=== PATIENT | male | born 1980 | race Caucasian/White ===

== ENCOUNTER 2020-10-08 09:40 | Outpatient (REF) | payer BC, SELFPAY ==
[2020-10-08 11:49] LABS: Alanine Aminotransferase 29 U/L (0-40); Albumin Level 4.3 g/dL (3.5-5.0); Alkaline Phosphatase 57 U/L (39-117); Anion Gap 10 (12-20); Aspartate Amino Transferase 16 U/L (5-37); Bilirubin Total 0.7 mg/dL (0.0-1.0); Blood Urea Nitrogen 12 mg/dL (9-16); Calcium 8.9 mg/dL (8.4-10.2); Carbon Dioxide 28 mmol/L (22-29); Chloride 106 mmol/L (96-108); Cholesterol 149 mg/dL; Estimated Glomerular Filt Rate > 60; Glucose Fasting 104 mg/dL (60-99); HDL Cholesterol 39 mg/dL; LDL Cholesterol Calculated 94 mg/dl; Potassium 4.3 mmol/L (3.3-5.1); Sodium 140 mmol/L (135-145); Total Protein 7.2 g/dL (6.5-8.0); Triglycerides 82 mg/dL
[2020-10-08 12:10] LABS: TSH reflex Free T4 1.24 uIU/mL (0.32-4.0)
== END 2020-10-08 09:41 | disposition home or self-care (01) ==
LOC: HO.HMGCLDS 09:40
PROVIDERS: PCP Nurse Practitioner Family; Visit Provider Nurse Practitioner Family
DX: Z00.00 Encounter for general adult medical examination without abnormal findings (principal)
CPT/HCPCS: 36415; 80053; 80061; 84443

== ENCOUNTER 2021-10-28 13:34 | Outpatient (REF) | payer BC, SELFPAY ==
[2021-10-28 16:25] LABS: MANUAL DIFF FLAG NO
[2021-10-28 16:29] LABS: Basophils Percent Auto 0.2 % (0-2); Eosinophils Absolute Auto 0.1 X10*3/uL (0.0-0.4); Eosinophils Percent Auto 2.2 % (0-4); Hemoglobin 15.1 g/dl (14.0-18.0); Imm Gran Abs Auto 0.01 X10*3/uL (0.00-0.03); Imm Gran Pct Auto 0.2 % (0.0-0.4); Lymphocytes Absolute Auto 1.8 X10*3/uL (1.2-4.9); Lymphocytes Percent Auto 32.5 % (20-40); Mean Corpuscular HGB Conc 34.3 g/dl (31.0-36.0); Mean Corpuscular Hemoglobin 28.8 pg (27.0-33.0); Monocytes Absolute Auto 0.5 X10*3/uL (0.1-1.2); Monocytes Percent Auto 8.7 % (2-11); Neutrophils Absolute Auto 3.1 x10*3/uL (2.0-8.3); Neutrophils Percent Auto 56.2 % (45-73); Platelet Count 261 X10*3/uL (160-400); Red Blood Count 5.24 X10*6/uL (4.60-5.80); Red Cell Distribution Width 12.8 % (11.0-16.0); White Blood Count 5.5 X10*3/uL (4.8-10.8)
[2021-10-28 16:34] LABS: Appearance Urine CLOUDY; Color Urine YELLOW; Glucose Urine UA NEG (NEG); Leukocyte Esterase Urine NEG (NEG); Nitrite Urine NEG (NEG); Specific Gravity - Urine 1.025 (1.005-1.025); Urine Blood NEG (NEG); Urine Ketones 5 MG/DL (NEG); Urine Protein NEG (NEG-TRACE)
[2021-10-28 16:42] LABS: Alanine Aminotransferase 37 U/L (0-40); Albumin Level 4.5 g/dL (3.5-5.0); Alkaline Phosphatase 62 U/L (39-117); Anion Gap 14 (12-20); Aspartate Amino Transferase 21 U/L (5-37); Blood Urea Nitrogen 11 mg/dL (9-16); Calcium 9.6 mg/dL (8.4-10.2); Carbon Dioxide 27 mmol/L (22-29); Chloride 101 mmol/L (96-108); Cholesterol 173 mg/dL; Estimated Glomerular Filt Rate > 60; Glucose Fasting 92 mg/dL (60-99); HDL Cholesterol 41 mg/dL; LDL Cholesterol Calculated 115 mg/dl; Potassium 4.1 mmol/L (3.3-5.1); Sodium 138 mmol/L (135-145); Total Protein 7.8 g/dL (6.5-8.0); Triglycerides 87 mg/dL
[2021-10-28 17:02] LABS: TSH reflex Free T4 1.19 uIU/mL (0.32-4.0)
== END 2021-10-28 13:35 | disposition home or self-care (01) ==
LOC: HO.HMGCLDS 13:34
PROVIDERS: Visit Provider Nurse Practitioner Family
DX: Z00.00 Encounter for general adult medical examination without abnormal findings (principal)
CPT/HCPCS: 36415; 80053; 80061; 81003; 84443; 85025

== ENCOUNTER 2022-10-31 14:40 | Outpatient (REF) | payer BC, SELFPAY ==
[2022-10-31 16:45] LABS: MANUAL DIFF FLAG NO
[2022-10-31 16:48] LABS: Eosinophils Absolute Auto 0.1 X10*3/uL (0.0-0.4); Eosinophils Percent Auto 1.3 % (0-4); Hematocrit 46.3 % (42.0-52.0); Hemoglobin 15.6 g/dl (14.0-18.0); Imm Gran Abs Auto 0.01 X10*3/uL (0.00-0.03); Imm Gran Pct Auto 0.1 % (0.0-0.4); Lymphocytes Absolute Auto 2.1 X10*3/uL (1.2-4.9); Mean Corpuscular HGB Conc 33.7 g/dl (31.0-36.0); Mean Corpuscular Hemoglobin 28.2 pg (27.0-33.0); Mean Corpuscular Volume 83.6 fL (80.0-98.0); Mean Platelet Volume 9.8 fL (9.4-12.4); Monocytes Absolute Auto 0.5 X10*3/uL (0.1-1.2); Monocytes Percent Auto 7.8 % (2-11); Neutrophils Absolute Auto 4.1 x10*3/uL (2.0-8.3); Neutrophils Percent Auto 59.8 % (45-73); Platelet Count 280 X10*3/uL (160-400); Red Blood Count 5.54 X10*6/uL (4.60-5.80); Red Cell Distribution Width 12.6 % (11.0-16.0); White Blood Count 6.8 X10*3/uL (4.8-10.8)
[2022-10-31 17:21] LABS: Alanine Aminotransferase 41 U/L (0-40); Albumin Level 4.7 g/dL (3.5-5.0); Alkaline Phosphatase 65 U/L (39-117); Anion Gap 13 (12-20); Aspartate Amino Transferase 20 U/L (5-37); Blood Urea Nitrogen 9 mg/dL (9-16); Carbon Dioxide 27 mmol/L (22-29); Chloride 105 mmol/L (96-108); Cholesterol 166 mg/dL; Estimated Glomerular Filt Rate > 60; Glucose Fasting 98 mg/dL (60-99); HDL Cholesterol 40 mg/dL; LDL Cholesterol Calculated 103 mg/dl; Potassium 4.6 mmol/L (3.3-5.1); Sodium 140 mmol/L (135-145); Total Protein 7.8 g/dL (6.5-8.0); Triglycerides 117 mg/dL
[2022-11-01 11:47] LABS: Appearance Urine Clear; Color Urine Yellow; Glucose Urine UA Negative (Negative); Leukocyte Esterase Urine Negative (Negative); Nitrite Urine Negative (Negative); PH 6.5 (5.0-9.0); Urine Blood Negative (Negative); Urine Ketones Negative (Negative); Urine Protein Negative (Neg-Trace)
== END 2022-10-31 14:41 | disposition home or self-care (01) ==
LOC: HO.HMGCLDS 14:40
PROVIDERS: PCP Nurse Practitioner Family; Visit Provider Nurse Practitioner Family
DX: Z00.00 Encounter for general adult medical examination without abnormal findings (principal); E66.9 Obesity, unspecified; R53.83 Other fatigue
CPT/HCPCS: 36415; 80053; 80061; 81003; 84443; 85025

== ENCOUNTER 2022-11-09 08:31 | Outpatient (REF) | payer BC, SELFPAY ==
[2022-11-09 11:32] LABS: Appearance Urine Clear; Color Urine Yellow; Glucose Urine UA Negative (Negative); Leukocyte Esterase Urine Negative (Negative); Nitrite Urine Negative (Negative); PH 6.5 (5.0-9.0); Urine Blood Negative (Negative); Urine Ketones Negative (Negative); Urine Protein Negative (Neg-Trace)
[2022-11-11 23:48] LABS: TS Negative Control Passed; TS Panel A 0; TS Panel B 0; TS Positive Control Passed; TSpotTB Negative (Negative)
== END 2022-11-09 08:32 | disposition home or self-care (01) ==
LOC: HO.HMGCLDS 08:31
PROVIDERS: PCP Nurse Practitioner Family; Visit Provider Nurse Practitioner Family
DX: Z00.00 Encounter for general adult medical examination without abnormal findings (principal); Z11.1 Encounter for screening for respiratory tuberculosis
CPT/HCPCS: 36415; 81003; 86481

== ENCOUNTER 2023-05-07 08:15 | Outpatient (AMB) | payer BC, SELFPAY ==
--- NOTE | 2023-05-07 08:23 | A.OFFPC_ITS ---
Vital Signs 05/07/23 08:26 Height 6 ft Weight 350 lb BMI 47.5 BP 120/90 H Blood Pressure Location Rt brachial Position Sitting Pulse 93 Pulse Source Pulse Oximeter Pulse Oximetry (%) 96 Oxygen Delivery Method Room Air Intake Visit Reasons: 6 month follow up Allergies No Known Allergies Allergy (Verified 05/07/23 08:26) Tobacco use date assessed: 10/31/22 HPI 6 month follow up HPI Details HTN: Blood pressure is managed with lisinopril 20mg. Pt reports that his blood pressure at home has been in the 120s/80s-90s. Will add hydrochlorothiazide 12.5mg (switching to combo med). Pt will continue to monitor his BP at home. Will order labs. Denies chest pain, shortness of breath, headache, dizziness, and blurred vision. PFSH Family History Father Hypertension Substance use disorder Mother Hypertension Social History Housing: House Alcohol intake: current Alcohol intake frequency: a few times a month Patient Tobacco Use Status: Never used Tobacco e-Cigarette/Vaping Use: Never Used Second Hand Smoke Exposure: No service: No Current occupational status: employed Current occupation: [employer] Current occupational exposures/hazards: No Cognitive needs: No Hearing needs: No Vision needs: Yes Questionnaire Thrive Questionnaire Date Thrive assessed: 10/03/21 THEODORE-7 AMB Questionnaire THEODORE-7 Date THEODORE - 7 assessed: 10/03/21 Source: Developed by Drs. Kilo Marroquin, Saranya Beltran, Jose De Jesus Yanes and colleagues, with an educational cricket from [employer]. Review of Systems Const Reports as per HPI Physical exam (Primary Care) Vital Signs: Last Vital Signs Pulse 93 05/07/23 08:26 BP 120/90 H 05/07/23 08:26 Pulse Ox 96 05/07/23 08:26 Oxygen Delivery Method Room Air 05/07/23 08:26 BMI result Body Mass Index 47.5 Tobacco/Smoking Status: Tobacco use Status Tobacco use date assessed 10/31/22 05/07/23 08:25 Patient Tobacco Use Status Never used Tobacco 05/07/23 08:25 e-Cigarette/Vaping Use Never Used 05/07/23 08:25 Thrive Assessment: Date of Thrive Assessment Date Thrive assessed 10/03/21 05/07/23 08:25 Const General: cooperative Nutritional Appearance: obese morbidly obese Orientation/consciousness: patient oriented x3 Resp Effort & Inspection: normal respiratory effort Auscultation: clear to auscultation bilaterally Cardio Rate: regular rate Rhythm: regular rhythm Heart sounds: S1 normal heart sound present and S2 normal heart sound present Neuro General: patient oriented x3 Extrem Right lower extremity: edema (trace) Left lower extremity: edema (trace) Psych Appearance: grossly normal Mental Status: mental status grossly normal Speech and movement: Normal speech and movement present Affect: normal affect Attitude: cooperative Thought process: Normal thought process present Thought content: Normal thought content present Insight: Good insight present (Psych) Judgement: Good judgement present (Psych) Assessment and Plan Assessment & Plan (1) HTN (hypertension): Code(s): I10 - Essential (primary) hypertension Plan: pt will call me if diastolic BP remains above 90 Plan The patient agreed to the use of a medical donation professional for this encounter. Scribed for HANSA Hernandez by Yoon Montanez medical donation professional, on 05/07/2023 at 08:40 EST. Orders: Orders Comprehensive Met. Panel Today I10 - Essential (primary) hypertension Medications: New lisinopril-hydrochlorothiazide 20-12.5 mg 1 tab PO DAILY 90 tabs 0RF Discontinued lisinopril Discontinued Reason: Duplicate 20 mg PO DAILY 90 days 90 tabs 1RF Coding Level of Care Code Est Pt Level 3 (57182) Diagnoses HTN (hypertension) I10
[2023-05-07 08:26] VITALS: BP 120/90; PULSE 93; O2SAT 96; BMI 47.5
== END 2023-05-07 12:37 | disposition home or self-care (01) ==
PROVIDERS: Visit Provider Nurse Practitioner Family
DX: I10 Essential (primary) hypertension (principal)
CPT/HCPCS: 99213

== ENCOUNTER 2023-11-07 10:47 | Outpatient (AMB) | payer BC, SELFPAY ==
--- NOTE | 2023-11-07 10:50 | A.OFFPC_ITS ---
Vital Signs 11/07/23 10:52 Height 6 ft Weight 350 lb BMI 47.5 BP 130/86 Blood Pressure Location Rt brachial Position Sitting Pulse 87 Pulse Source Pulse Oximeter Pulse Oximetry (%) 99 Oxygen Delivery Method Room Air Intake Visit Reasons: Annual PE Intake Note: Patient here for physical exam. Allergies No Known Allergies Allergy (Verified 11/07/23 12:16) Medication List - Last Reconciled 11/07/23 by HANSA Duran lisinopril-hydrochlorothiazide 20-12.5 mg 1 tab PO DAILY Tobacco use date assessed: 11/07/23 Dental Screening Dental Screen Date: 11/07/23 Did you have a dental visit in the last 12 months?: No Did you have a dental problem in the last 6 months where you did not have access to dental care?: No Was dental information given to patient?: No HPI Annual PE HPI Details Pt is here for a PE. Will order labs. Pt needs paperwork filled out for the adoption process. In my opinion, pt will make an excellent parent. Pt sees derm twice a year. PFSH Family History Father Hypertension Substance use disorder Mother Hypertension Social History Housing: House Alcohol intake: current Alcohol intake frequency: a few times a month Patient Tobacco Use Status: Never used Tobacco e-Cigarette/Vaping Use: Never Used Second Hand Smoke Exposure: No service: No Current occupational status: employed Current occupation: [employer] Current occupational exposures/hazards: No Cognitive needs: No Hearing needs: No Vision needs: Yes Questionnaire Thrive Questionnaire Date Thrive assessed: 10/03/21 AUDIT C Alcohol Use Questionnaire (AUDIT-C) 1. How often do you have a drink containing alcohol?: Monthly or less 2. How many drinks containing alcohol do you have on a typical day when you are drinking?: 1 or 2 3. How often do you have six or more drinks on one occasion?: Never Total Score: 1 Score Reviewed/Action Taken: No THEODORE-7 AMB Questionnaire THEODORE-7 Date THEODORE - 7 assessed: 10/03/21 Source: Developed by Drs. Kilo Marroquin, Saranya B.W. Jose De Jesus Beltran and colleagues, with an educational cricket from [employer]. Review of Systems Const Denies chills and Denies fever(s) Eyes Denies blurry vision ENT Denies vertigo, Denies dizziness and Denies sore throat Card Denies chest pain at rest, Denies chest pain with activity, Denies diaphoresis, Denies dyspnea and Denies dyspnea on exertion Resp Denies cough, Denies dyspnea, Denies dyspnea on exertion and Denies wheezing GI Denies abdominal pain, Denies melena, Denies hematochezia, Denies constipation, Denies diarrhea and Denies loose stools Denies hematuria Musc Denies numbness and Denies tingling Skin/Breast Denies lesions Neuro Denies vertigo, Denies dizziness, Denies numbness and Denies tingling Psych Denies anxiety, Denies depression, Denies homicidal ideation, Denies suicidal ideation and Denies other (substance abuse) Aller/Immun Denies wheezing Physical exam (Primary Care) Vital Signs: Last Vital Signs Pulse 87 11/07/23 10:52 BP 130/86 11/07/23 10:52 Pulse Ox 99 11/07/23 10:52 Oxygen Delivery Method Room Air 11/07/23 10:52 BMI result Body Mass Index 47.5 Tobacco/Smoking Status: Tobacco use Status Tobacco use date assessed 11/07/23 11/07/23 10:55 Patient Tobacco Use Status Never used Tobacco 11/07/23 10:55 e-Cigarette/Vaping Use Never Used 11/07/23 10:55 Thrive Assessment: Date of Thrive Assessment Date Thrive assessed 10/03/21 11/07/23 10:55 Const General: cooperative Nutritional Appearance: obese morbidly obese Orientation/consciousness: patient oriented x3 HENMT Head: Yes normal to inspection, Yes normocephalic and Yes atraumatic Ears: TM's normal bilaterally Eyes General: appearance normal, both eyes and all related structures Alignment and Position: alignment normal and position normal Neck Neck: Yes normal visual inspection and Yes no lymphadenopathy Thyroid: Thyroid normal Resp Effort & Inspection: normal respiratory effort Auscultation: clear to auscultation bilaterally Cardio Rate: regular rate Rhythm: regular rhythm Heart sounds: S1 normal heart sound present, S2 normal heart sound present and no murmurs GI Palpation (GI): Soft to palpation and nontender Auscultation: normal bowel sounds Male General Exam: Yes normal external exam Penis: normal penis Scrotum: scrotum normal, testes descended bilaterally and no inguinal hernias Testes: no testicular mass Skin Other: several moles to back (range in size and shape, though mostly round and dark without any irregular borders) Rashes: no rashes Neuro General: patient oriented x3, moves all extremities, no focal motor deficits and deep tendon reflexes 2+ bilaterally Romberg Test: Negative Psych Appearance: grossly normal Mental Status: mental status grossly normal Speech and movement: Normal speech and movement present Affect: normal affect Attitude: cooperative Thought process: Normal thought process present Thought content: Normal thought content present Insight: Good insight present (Psych) Judgement: Good judgement present (Psych) Assessment and Plan Assessment & Plan (1) Physical exam: Code(s): Z00.00 - Encounter for general adult medical examination without abnormal findings (2) Screening-pulmonary TB: Code(s): Z11.1 - Encounter for screening for respiratory tuberculosis Plan: t spot ordered Plan The patient agreed to the use of a medical insurance collector for this encounter. Scribed for LANRE Hernandez-ADRIANE by Yoon Montanez medical insurance collector, on 11/07/2023 at 11:00 EST. Orders: Orders TSH reflex Free T4 Today Z00.00 - Encounter for general adult medical examination without abnormal findings UA CC w/rflx Micro + Cult Today Z00.00 - Encounter for general adult medical examination without abnormal findings Lipid Panel Today Z00.00 - Encounter for general adult medical examination without abnormal findings Complete Blood Count Auto Diff Today Z00.00 - Encounter for general adult medical examination without abnormal findings Comprehensive [place]. Panel Fast Today Z00.00 - Encounter for general adult medical examination without abnormal findings T Spot TB Today Z11.1 - Encounter for screening for respiratory tuberculosis Coding Level of Care Code Est Pt Prev Care 40-64y(14441) Diagnoses Physical exam Z00.00 Screening-pulmonary TB Z11.1
[2023-11-07 10:52] VITALS: BP 130/86; PULSE 87; O2SAT 99; BMI 47.5
== END 2023-11-07 11:16 | disposition home or self-care (01) ==
PROVIDERS: Visit Provider Nurse Practitioner Family
DX: Z00.00 Encounter for general adult medical examination without abnormal findings (principal); Z11.1 Encounter for screening for respiratory tuberculosis
CPT/HCPCS: 99396

== ENCOUNTER 2023-11-10 08:04 | Outpatient (REF) | payer BC, SELFPAY ==
[2023-11-10 11:08] LABS: MANUAL DIFF FLAG NO
[2023-11-10 11:13] LABS: Basophils Percent Auto 0.2 % (0-2); Eosinophils Absolute Auto 0.1 X10*3/uL (0.0-0.4); Eosinophils Percent Auto 2.7 % (0-4); Hematocrit 42.8 % (42.0-52.0); Hemoglobin 14.6 g/dl (14.0-18.0); Imm Gran Abs Auto 0.02 X10*3/uL (0.00-0.03); Imm Gran Pct Auto 0.4 % (0.0-0.4); Lymphocytes Absolute Auto 1.7 X10*3/uL (1.2-4.9); Lymphocytes Percent Auto 35.3 % (20-40); Mean Corpuscular HGB Conc 34.1 g/dl (31.0-36.0); Mean Corpuscular Hemoglobin 28.8 pg (27.0-33.0); Mean Corpuscular Volume 84.4 fL (80.0-98.0); Monocytes Absolute Auto 0.5 X10*3/uL (0.1-1.2); Monocytes Percent Auto 10.1 % (2-11); Neutrophils Absolute Auto 2.5 x10*3/uL (2.0-8.3); Neutrophils Percent Auto 51.3 % (45-73); Platelet Count 237 X10*3/uL (160-400); Red Blood Count 5.07 X10*6/uL (4.60-5.80); Red Cell Distribution Width 12.9 % (11.0-16.0); White Blood Count 4.9 X10*3/uL (4.8-10.8)
[2023-11-10 11:16] LABS: Appearance Urine Clear; Color Urine Yellow; Glucose Urine UA Negative (Negative); Leukocyte Esterase Urine Negative (Negative); Nitrite Urine Negative (Negative); Urine Blood Negative (Negative); Urine Ketones Negative (Negative); Urine Protein Negative (Neg-Trace)
[2023-11-10 11:31] LABS: Alanine Aminotransferase 32 U/L (0-40); Albumin Level 4.2 g/dL (3.5-5.0); Alkaline Phosphatase 61 U/L (39-117); Anion Gap 13 (12-20); Aspartate Amino Transferase 17 U/L (5-37); Bilirubin Total 0.7 mg/dL (0.0-1.0); Blood Urea Nitrogen 12 mg/dL (9-16); Calcium 9.2 mg/dL (8.4-10.2); Carbon Dioxide 25 mmol/L (22-29); Chloride 103 mmol/L (96-108); Cholesterol 125 mg/dL (<200); Estimated Glomerular Filt Rate > 60; Glucose Fasting 103 mg/dL (60-99); Glucose Random 102 mg/dL (60-115); HDL Cholesterol 35 mg/dL (>40); LDL Cholesterol Calculated 71 mg/dL (<100); Potassium 4.3 mmol/L (3.3-5.1); Sodium 137 mmol/L (135-145); Total Protein 7.6 g/dL (6.5-8.0); Triglycerides 96 mg/dL (<150)
[2023-11-10 11:47] LABS: TSH reflex Free T4 1.26 uIU/mL (0.32-4.0)
== END 2023-11-10 08:05 | disposition home or self-care (01) ==
LOC: HO.HMGCLDS 08:04
PROVIDERS: PCP Nurse Practitioner Family; Visit Provider Nurse Practitioner Family
DX: Z00.00 Encounter for general adult medical examination without abnormal findings (principal); I10 Essential (primary) hypertension
CPT/HCPCS: 36415; 80053; 80061; 81003; 84443; 85025

== ENCOUNTER 2024-12-04 12:48 | Outpatient (AMB) | payer BC, SELFPAY ==
--- NOTE | 2024-12-04 12:49 | A.OFFPC_ITS ---
Vital Signs 12/04/24 12:52 12/04/24 13:38 Height 6 ft Weight 339 lb BMI 46.0 BP 142/86 H 128/80 Blood Pressure Location Rt brachial Rt brachial Position Sitting Sitting Pulse 81 Pulse Source Pulse Oximeter Temp 97.9 F Temp Source Oral Pulse Oximetry (%) 92 Oxygen Delivery Method Room Air Intake Visit Reasons: ANNUAL PE Allergies No Known Allergies Allergy (Verified 12/04/24 13:20) Medication List - Last Reconciled 12/04/24 [facility] lisinopril-hydrochlorothiazide 20-12.5 mg 1 tab PO DAILY Tobacco use date assessed: 12/04/24 Dental Screening Dental Screen Date: 12/04/24 Did you have a dental visit in the last 12 months?: No Did you have a dental problem in the last 6 months where you did not have access to dental care?: No Was dental information given to patient?: No HPI ANNUAL PE HPI Details History of Present Illness The patient is a 44-year-old male presenting for a wellness evaluation with a focus on dermatological follow-up. He denies chest pain, shortness of breath, abdominal pain, and alterations in bowel function, such as constipation or diarrhea. He also denies any suicidal or homicidal thoughts. The patient regularly sees a grounds supervisor due to his fair skin. He acknowledges a history of morbid obesity. Health Maintenance - Regular evaluations by a grounds supervisor for skin health due to very fair skin Social History - Regular dermatology consultations for fair skin Review of Systems - Cardiac: Denies chest pain - Respiratory: Denies shortness of breat h - Gastrointestinal: Denies abdominal meera n, denies changes in bowel habits, denies constipation, and denies diarrhea - Psychological: Denies suicidal ideatio n, denies homicidal ideation -denies any fevers and chills Physical Exam General: Cooperative, healthy appearing, comfortable, no acute distress and well developed, morbid obesity Orientation: Patient oriented x3 Limitations: No limitations Head: Normal to inspection Ears: Hearing grossly normal bilaterally Nose: Normal external nose present Face and sinus: Normal facial exam Eyes: Appearance normal, both eyes and all related structures Neck: Normal visual inspection and Yes full ROM Respiratory: Normal respiratory effort and able to speak in complete sentences. Clear to auscultation bilaterally Cardiovascular: Regular rate and rhythm. Normal S1 and S2 GI: Normal to inspection. Soft to palpation and nontender Skin: several birthmarkes, moles throughout upper torso especially. Neuro: Patient oriented x3 Extremities: Trace edema and a RLE, otherwise normal to inspection Results Plan The patient?s morbid obesity is noted, and it necessitates ongoing management. The trace edema and the observed lower extremity redness indicate the need for further evaluation to ascertain any contributing factors. Regular dermatological follow-ups continue to be recommended based on the fair skin type. Health maintenance and monitoring should remain priorities, and attention to any emerging symptoms or concerns is essential. Discussion Notes The patient was informed about the need for continued health monitoring due to his obesity. I emphasized the importance of regular dermatology visits for skin health maintenance. Given the edema and redness in the lower extremity, further observational vigilance was discussed to potentially identify root causes or exacerbating factors. The patient was encouraged to report any new symptoms or changes promptly. Patient Instructions - Continue dermatology visits as schedul ed - Monitor any changes in swelling or red ness in the legs and report promptly - Maintain regular physical activity and dietary management for weight control - Report any new symptoms or concerns [facility] Surgical History No pertinent past surgical history Family History Father Hypertension Substance use disorder Mother Hypertension Social History Housing: House Alcohol intake: current Alcohol intake frequency: a few times a month Patient Tobacco Use Status: Never used Tobacco e-Cigarette/Vaping Use: Never Used Second Hand Smoke Exposure: No service: No Current occupational status: employed Current occupation: [employer] Current occupational exposures/hazards: No Cognitive needs: No Hearing needs: No Vision needs: Yes Questionnaire PHQ-9 Over the last 2 weeks, how often have you been bothered by any of the following problems? 1. Little interest or pleasure in doing things: not at all 2. Feeling down, depressed, or hopeless: not at all 3. Trouble falling or staying asleep, or sleeping too much: not at all 4. Feeling tired or having little energy: not at all 5. Poor appetite or overeating: not at all 6. Feeling bad about yourself - or that you are a failure or have let yourself or your family down: not at all 7. Trouble concentrating on things, such as reading the newspaper or watching television: not at all 8. Moving or speaking so slowly that other people could have noticed. Or the opposite - being so fidgety or restless that you have been moving around a lot more than usual: not at all 9. Thoughts that you would be better off or of hurting yourself in some way: not at all Total score: 0 Depression Screening Interpretation: Negative Depression Screening Done: Yes 11408 - PHQ-9 Billing: Yes Source: Developed by Drs. Kilo Marroquin, Saranya Beltran, Jose De Jesus Yanes and colleagues, with an educational cricket from [employer]. Thrive Questionnaire Date Thrive assessed: 12/04/24 I am a: Patient What is your living situation today?: I have a steady place to live Within the past 12 months, did the food you bought not last and you didn't have the money to get more?: Never true Within the past 12 months, did you worry whether your food would run out before you got money to buy more?: Never true Do you have trouble paying for medicines?: No Do you have trouble getting transportation to medical appointments?: No Do you have trouble paying your heating and electricity bill?: No Do you have trouble taking care of your child, family member or friend?: No Do you have trouble with day-to-day activities such as bathing, preparing meals, shopping, managing finances, etc.?: No Are you currently unemployed and looking for a job?: No Are you interested in more education?: No Please select the resources that you would like help with: None Currently or been in a relationship where the following occur: No concerns repo rted THRIVE Score: 0 AUDIT C Alcohol Use Questionnaire (AUDIT-C) 1. How often do you have a drink containing alcohol?: 2-4 times a month 2. How many drinks containing alcohol do you have on a typical day when you are drinking?: 1 or 2 3. How often do you have six or more drinks on one occasion?: Never Total Score: 2 Score Reviewed/Action Taken: Yes THEODORE-7 AMB Questionnaire THEODORE-7 Date THEODORE - 7 assessed: 12/04/24 Feeling nervous, anxious, or on edge: 0 = Not at all Not being able to stop or control worryin = Not at all Worrying too much about different things: 0 = Not at all Trouble relaxin = Not at all Being so restless that it is hard to sit still: 0 = Not at all Becoming easily annoyed or irritable: 0 = Not at all Feeling afraid as if something awful might happen: 0 = Not at all Total THEODORE-7 score (0-4 normal; 5-9 mild; 10-14 moderate; 15-21 severe): 0 Source: Developed by Drs. Kilo Marroquin, Saranya Beltran, Jose De Jesus Yanes and colleagues, with an educational cricket from [employer]. THEODORE-7 Assessment Billing THEODORE-7 Assessment Tool: THEODORE-7 Assessment 78101 Physical exam (Primary Care) Vital Signs: Last Vital Signs Temp 97.9 F 12/04/24 12:52 Pulse 81 12/04/24 12:52 BP 142/86 H 12/04/24 12:52 Pulse Ox 92 12/04/24 12:52 Oxygen Delivery Method Room Air 12/04/24 12:52 BMI result Body Mass Index 46.0 Tobacco/Smoking Status: Tobacco use Status Tobacco use date assessed 12/04/24 12/04/24 12:56 Patient Tobacco Use Status Never used Tobacco 12/04/24 12:56 e-Cigarette/Vaping Use Never Used 12/04/24 12:56 PHQ-9: PHQ-9 Score PHQ-9: Total score 0 12/04/24 13:21 Depression Screening Interpretation: Negative Thrive Assessment: Date of Thrive Assessment Date Thrive assessed 12/04/24 12/04/24 12:56 Currently or been in a relationship where the following occur: No concerns reported Coding Level of Care Code Est Pt Prev Care 40-64y(80712) Diagnoses Physical exam Z00.00 HTN (hypertension) I10 Additional Codes THEODORE-7 Assessment Billing - THEODORE-7 Assessment Tool: THEODORE-7 Assessment 37491 ([id number]) PHQ-9 - 36791 - PHQ-9 Billing: Yes ([id number]) Assessment & Plan Assessment & Plan (1) Physical exam: Code(s): Z00.00 - Encounter for general adult medical examination without abnormal findings Category: Medical (2) HTN (hypertension): Code(s): I10 - Essential (primary) hypertension Category: Medical Plan . Orders: Orders TSH reflex Free T4 Today I10 - Essential (primary) hypertension, Z00.00 - Encounter for general adult medical examination without abnormal findings Complete Blood Count Auto Diff Today I10 - Essential (primary) hypertension, Z00.00 - Encounter for general adult medical examination without abnormal findings Comprehensive [place]. Panel Fast Today I10 - Essential (primary) hypertension, Z00.00 - Encounter for general adult medical examination without abnormal findings UA CC w/rflx Micro + Cult Today I10 - Essential (primary) hypertension, Z00.00 - Encounter for general adult medical examination without abnormal findings Lipid Panel Today I10 - Essential (primary) hypertension, Z00.00 - Encounter for general adult medical examination without abnormal findings
[2024-12-04 12:52] VITALS: BP 142/86; PULSE 81; TEMP 36.6; O2SAT 92; BMI 46.0
[2024-12-04 13:38] VITALS: BP 128/80
--- OUTSIDE RECORDS SUMMARY | 2024-12-04 14:54 | XMS_ITS | Data Portability ---
Author Organization [facility] [address] Address [address] [place] [address] Assessment No assessment recorded. Plan of Treatment Reminders Order Date Submit Date Provider Last Modified By Organization Details Last Modified Time Details Appointments None recorded. Lab None recorded. Referral None recorded. Procedures None recorded. Surgeries None recorded. Imaging None recorded. Medication Orders benzonatate 200 mg capsule 2023 024 [email or web address] 5 [facility] #[id number], [address] [place], [address], 15:16:26 Patient TargetsNo targets recorded. Patient Instructions Encounter Date Encounter Id Patient Instructions Last Modified By Organization Details Last Modified Time 07/03/2023 [id number] cough: care instructions [email or web address] Not available 07/03/2023 09:01:25 viral respirator y infection: care instructions [email or web address] Not available 07/03/2023 09:01:25 Your history and physical exam suggest that you have a post viral cough. Your lung exam is normal - no clinical signs of wheezing or pneumonia. You cough may persist for another week or so but should ultimately resolve. If it does not resolve you will need to see your doctor for follow-up. Sometimes people who take lisinopril for hypertension can develop a chronic cough and their medication may need to be changed. You blood pressure was also elevated today and should be followed by your doctor. See printed instructions. Take the cough medication as prescribed if needed. A bedside humidifier or vaporizer may help your nocturnal cough. Seek Emergency Medical evaluation for any worsening symptoms, particularly for high fever, chest pain, shortness of breath, wheezing, coughing up blood. [email or web address] Not available 07/03/2023 09:04:58 Reason for Referral None Reported. Problems Name Problem SNOMED Code Status Onset Date Resolution Date Notes Provider Name and Address Organization Details Recorded Time Hypertensive disorder [id number] Active 2023 [facility] 08:27:27 Problem Notes None recorded. Medical Equipment None Reported. Allergies No known drug allergies Medications Name Sig Start Date Stop Date Status Note LastModified by Organization Details LastModified Time lisinopril 20 mg-hydrochl orothiazide 12.5 mg tablet TAKE 1 TABLET BY MOUTH EVERY DAY active Not Available Not Available No t Available benzonatate 200 mg capsule Take 1 capsule 3 times a day by oral route as needed. 2023 active Not Available Not Available Not Avai lable lisinopril 20 mg tablet TAKE 1 TABLET BY MOUTH EVERY DAY 07/03 completed Not Available Not Available Not Available econazole nitrate 1 % topical cream APPLY TWICE DAILY TO AREAS OF RASH ON THE BUTTOCKS, LEGS, AND FEET UP TO 4 WEEKS OR UNTIL RESOLVED. active Not Available Not Available No t Available lisinopril 10 mg tablet TAKE 1 TABLET BY MOUTH EVERY DAY 07/03 completed Not Available Not Available Not Available mupirocin 2 % topical ointment APPLY TO SURGICAL SITE TWICE A DAY FOR 7-14 DAYS OR UNTIL FULLY HEALED 07/03 completed Not Available Not Available Not Available Vitals Date Recorded Body height Body mass index (BMI) Body weight Body temperature Respiratory rate Oxygen saturation Oxygen saturation in Arterial blood by Pulse oximetry Heart rate Systolic blood pressure Diastolic blood pressure Provider Name and Address Organization Details Last Updated DateTime 4 182.88 cm 46.1 kg/m2 165794. 41 g 98.1 [degF] 18 /min 96 % 96 % 84 /min 155 mm[Hg] 88 mm[Hg] Onelia Medina [facility] 4 08:25:36 Social History Question Answer Notes LastModified by Organizat ion Details LastModified Time Tobacco Smoking Status Never Smoker [facility] 07/03/2023 08:28:07 Have You Had A Flu Shot This Season? No Information not available 07/03/2023 If No, Would You Like A Flu Shot Today? No Information not available 07/03/2023 Have You Had Direct Contact, Or Contact During Intimacy, With Monkeypox Rash, Scabs, Or Body Fluids From A Person With Monkeypox? No Information not available 07/03/2023 Have You Recently Traveled Abroad? No Information not available 07/03/2023 Sex: Unknown Functional Status Question Answer Note LastModified by Organizat ion Details LastModified Time Do you use any illicit or recreational drugs? No Information not available 07/03/2023 Do you or have you ever used any other forms of tobacco or nicotine? No Information not available 07/03/2023 What is your level of alcohol consumption? Occasional Information not available 07/03/2023 Mental Status None recorded. Family History Relationship Description Onset Age of this Age Resolved Age Notes LastModified by Organization Details LastModified Time Father Hypertensive disorder Not available 2023 08:27:43 Mother Hypertensive disorder Not available 2023 08:27:47 Medical History No medical history recorded. Immunizations Vaccine Type Date Status Note Provider Nam e and Address Organization Details Recorded Time COVID-19, mRNA, LNP-S, PF, 30 mcg/0.3 mL dose 10/13/2020 completed Onelia valentino, [place] - [facility] 07/03/2023 08:26:08 COVID-19, mRNA, LNP-S, PF, 30 mcg/0.3 mL dose 11/03/2020 completed Onelia valentino, [place] - [facility] 07/03/2023 08:26:08 COVID-19, mRNA, LNP-S, PF, 30 mcg/0.3 mL dose 06/11/2021 completed Onelia Blanco null, PA - [facility] 07/03/2023 08:26:08 Tdap 10/01/2015 completed Onelia valentino, PA - [facility] 07/03/2023 08:26:08 Tdap 12/16/2015 completed Onelia valentino, PA - [facility] 07/03/2023 08:26:08 Past Encounters Encounter ID Performer Location Encounter Start Date Encounter Closed Date Diagnosis/Indication Diagnosis SNOMED-CT Code Diagnosis ICD10 Code Diagnosis Note [id number] [facility] [place] [address] 12/13/2020 18:13:59 12/13/2020 20:28:52 [id number] Cesilia Magdaleno [place] [id number] [facility] [place] [address] 07/03/2023 08:13:45 07/03/2023 09:07:13 Cough 36797661 R05.9 Health Concerns Section Related Observation LastModified by Organization Detai ls LastModified Time None Recorded Concern Status LastModified by Organization Details LastModified Time None Recorded Advance Directives Directive None Recorded Payers Insurance Date Sequence Insurance Name Policy Number Policy Allen Covered Member ID Allen Member ID Guarantor Name 07/03/2023 1 [facility] ([facility] [id number] 1 Epi Purchase [id number] Epi Purchase Notes Date Note Type Note Provider Name and Address Organization Details Recorded Time 4 text/html CoughReported bypatient.source of patient informationInformation obtained from patient; Patient arrived at Urgent Care ambulatory Quality:dry and wet Severity:moderate Duration:constant; 2 weeks. Timing:constant Context:non-smoker Modifying Factors:Worse at night. Associated Symptoms:no fever; no chills; no chest pain; no heartburn; no nausea; no vomiting; no edema; no wheezing; no post nasal dripNotes:43 year old male presenting for evaluation of a persistent, occasionally productive cough for the past 2 weeks. The cough is worse at night. He initially had nasal congestion and runny nose with fever and chills that resolved. His throat is irritated from coughing. No current fever, chills, headache, sinus pressure, nasal symptoms, rash, stiff neck, chest pain, shortness of breath, GI symptoms or body aches. He had 3 negative home covid tests over the past 2 weeks. Cesilia Magdaleno MD [address] [facility] [place], [address], [place] - [facility] 07/05/2023 15:24:07
== END 2024-12-04 13:44 | disposition home or self-care (01) ==
LOC: HO.HMCC 12:49
PROVIDERS: PCP Nurse Practitioner Family; Visit Provider Nurse Practitioner Family
DX: Z00.00 Encounter for general adult medical examination without abnormal findings (principal); I10 Essential (primary) hypertension

== ENCOUNTER → 2024-12-04 12:48 | Outpatient (BNVA) | payer BC, SELFPAY | PROVIDERS: PCP Nurse Practitioner Family; Visit Provider Nurse Practitioner Family | DX: Z00.00 Encounter for general adult medical examination without abnormal findings (principal); I10 Essential (primary) hypertension; R07.9 Chest pain, unspecified; R06.02 Shortness of breath; R10.9 Unspecified abdominal pain; E66.01 Morbid (severe) obesity due to excess calories; Z68.42 Body mass index [BMI] 45.0-49.9, adult | CPT/HCPCS: 96127 ==

== ENCOUNTER 2025-03-23 08:19 | Outpatient (REF) | payer BC, SELFPAY ==
[2025-03-23 10:19] LABS: Appearance Urine Clear; Glucose Urine UA Negative (Negative); PH 6.5 (5.0-9.0); Specific Gravity - Urine 1.015 (1.005-1.025)
[2025-03-23 10:26] LABS: MANUAL DIFF FLAG NO
[2025-03-23 10:34] LABS: Hematocrit 40.2 % (42.0-52.0); Hemoglobin 13.6 g/dl (14.0-18.0); Imm Gran Abs Auto 0.02 X10*3/uL (0.00-0.03); Imm Gran Pct Auto 0.4 % (0.0-0.4); Lymphocytes Absolute Auto 1.6 X10*3/uL (1.2-4.9); Mean Corpuscular HGB Conc 33.8 g/dl (31.0-36.0); Mean Corpuscular Hemoglobin 28.5 pg (27.0-33.0); Mean Corpuscular Volume 84.3 fL (80.0-98.0); NRBC Abs Auto 0.000 X10*3/uL (0.0-0.012); NRBC Pct Auto 0.0 /100WBC (0.0-0.2); Platelet Count 236 X10*3/uL (160-400); Red Blood Count 4.77 X10*6/uL (4.60-5.80); White Blood Count 4.7 X10*3/uL (4.8-10.8)
[2025-03-23 11:22] LABS: Alanine Aminotransferase 29 U/L (0-40); Albumin Level 4.3 g/dL (3.5-5.0); Alkaline Phosphatase 57 U/L (39-117); Anion Gap 8 (12-20); Aspartate Amino Transferase 26 U/L (5-37); Blood Urea Nitrogen 11 mg/dL (9-16); Calcium 9.0 mg/dL (8.4-10.2); Carbon Dioxide 29 mmol/L (22-29); Chloride 107 mmol/L (96-108); Cholesterol 126 mg/dL (<200); Estimated Glomerular Filt Rate > 60; HDL Cholesterol 37 mg/dL (>40); Potassium 4.5 mmol/L (3.3-5.1); Sodium 139 mmol/L (135-145); Total Protein 7.0 g/dL (6.5-8.0); Triglycerides 99 mg/dL (<150)
== END 2025-03-23 08:20 | disposition home or self-care (01) ==
LOC: HO.HMGCLDS 08:19
PROVIDERS: PCP Nurse Practitioner Family; Visit Provider Nurse Practitioner Family
DX: Z00.00 Encounter for general adult medical examination without abnormal findings (principal); I10 Essential (primary) hypertension
CPT/HCPCS: 36415; 80053; 80061; 81003; 84443; 85025

== ENCOUNTER 2025-04-18 08:33 | Outpatient (REF) | payer BC, SELFPAY ==
[2025-04-18 11:26] LABS: MANUAL DIFF FLAG NO
[2025-04-18 11:35] LABS: Hematocrit 41.9 % (42.0-52.0); Hemoglobin 14.3 g/dl (14.0-18.0); Imm Gran Abs Auto 0.01 X10*3/uL (0.00-0.03); Imm Gran Pct Auto 0.2 % (0.0-0.4); Lymphocytes Absolute Auto 1.8 X10*3/uL (1.2-4.9); Mean Corpuscular HGB Conc 34.1 g/dl (31.0-36.0); Mean Corpuscular Hemoglobin 28.7 pg (27.0-33.0); Mean Corpuscular Volume 84.0 fL (80.0-98.0); NRBC Abs Auto 0.000 X10*3/uL (0.0-0.012); NRBC Pct Auto 0.0 /100WBC (0.0-0.2); Platelet Count 243 X10*3/uL (160-400); Red Blood Count 4.99 X10*6/uL (4.60-5.80); Reticulocytes Absolute 0.109 X10*6/uL (0.026-0.095); White Blood Count 5.4 X10*3/uL (4.8-10.8)
[2025-04-18 12:04] LABS: Iron 73 mcg/dL (45-160); Percent Iron Saturation 35 % (15-50); Total Iron Binding Capacity 206 mcg/dL (228-428); Unsaturated Iron Binding 133 ug/dL
[2025-04-18 12:05] LABS: Ferritin 288 ng/mL (20-250)
[2025-04-18 12:21] LABS: Folate 9.6 ng/mL (> or = 4.0); Vitamin B12 411 pg/mL (200-900)
== END 2025-04-18 08:34 | disposition home or self-care (01) ==
LOC: HO.HMGCLDS 08:33
PROVIDERS: PCP Nurse Practitioner Family; Visit Provider Nurse Practitioner Family
DX: D64.9 Anemia, unspecified (principal)
CPT/HCPCS: 36415; 82607; 82728; 82746; 83540; 83615; 85025; 85045